=== PATIENT | male | born 1960 | race African-American/Black ===

== ENCOUNTER 2022-02-09 11:29 | Inpatient (IN) | payer OTHER ==
[2022-02-09 12:28] VITALS: BMI 29.8
[2022-02-09] MEDS ORDERED: POLYETHYLENE GLYCOL (HEALTHYLAX) 3350 17 GM PACKET PO PRN (14:21)
[2022-02-09] MEDS ORDERED: BENZOCAINE/MENTHOL (CHLORASEPTIC ) LOZENGE MM PRN (14:21)
[2022-02-09] MEDS ORDERED: ACETAMINOPHEN 325 MG TABLET (FP) PO PRN ×2 (14:21)
[2022-02-09] MEDS ORDERED: NICOTINE 10 MG CARTRIDGE (INHALER) IH PRN (14:21)
[2022-02-09] MEDS ORDERED: MAG HYDROX/AL HYDROX/SIMETH 30 ML UNIT-DOSE CUP PO PRN (14:21)
[2022-02-09] MEDS ORDERED: diazePAM 5 MG TABLET PO PRN (14:21)
[2022-02-09] MEDS ORDERED: METHOCARBAMOL 500 MG TABLET PO PRN (14:21)
[2022-02-09] MEDS ORDERED: ONDANSETRON *ODT* 4 MG TABLET SL PRN (14:21)
[2022-02-09] MEDS ORDERED: diazePAM 5 MG TABLET PO ONE ×2 (14:21→16:15)
[2022-02-09] MEDS ORDERED: BISMUTH SUBSALICYLATE 524 MG/30 ML PO PRN (14:21)
[2022-02-09] MEDS ORDERED: IBUPROFEN 400 MG TABLET (FP) PO PRN (14:21)
[2022-02-09] MEDS ORDERED: IBUPROFEN 600 MG TABLET (FP) PO PRN (14:21)
[2022-02-09] MEDS ORDERED: LOPERAMIDE HCL 2 MG CAPSULE PO PRN (14:21)
[2022-02-09] MEDS ORDERED: MAGNESIUM HYDROX 2400MG/30ML ORAL SUSPENSION 30 ML CUP PO PRN (14:21)
[2022-02-09] MEDS ORDERED: NALOXONE HCL (KLOXXADO) 8 MG SPRAY NS PRN (14:21)
[2022-02-09] MEDS ORDERED: DICYCLOMINE HCL 10 MG CAPSULE PO PRN (14:21)
[2022-02-09] MEDS ORDERED: NIFEdipine E.R 60 MG TABLET PO SCH (14:30)
[2022-02-09] MEDS: diazePAM 5 MG TABLET PO SCH ×2 (17:08→22:24)
[2022-02-09] MEDS: LOSARTAN POTASSIUM 50 MG TABLET PO SCH (17:19)
[2022-02-09] MEDS: MELATONIN 5 MG TABLETS PO SCH (22:24)
[2022-02-09] MEDS: THIAMINE HCL 100 MG TABLET (FP) PO SCH (22:24)
[2022-02-10] MEDS: diazePAM 5 MG TABLET PO SCH ×4 (05:51→22:35)
[2022-02-10] MEDS: LOSARTAN POTASSIUM 50 MG TABLET PO SCH (09:38)
[2022-02-10] MEDS: NIFEdipine E.R. 30 MG TABLET PO SCH (09:38)
[2022-02-10] MEDS: PRENATAL VITAMINS W/ FOLIC ACID TABLET (FP) PO SCH (10:45)
[2022-02-10 12:28] LABS: HEMATOCRIT 46.4 % (35.4-49); HEMOGLOBIN 14.9 GM/dL (11.7-16.9); MCH 29.5 pg (25.7-33.7); MCHC 32.2 g/dl (32.0-35.9); MEAN CELL VOLUME 91.6 fl (80-96); PLATELET COUNT 168 10^3/uL (134-434); RBC 5.06 M/mm3 (4.00-5.60); RDW 14.5 % (11.9-15.9); WHITE BLOOD COUNT 7.9 K/mm3 (4.0-10.0)
[2022-02-10 12:38] LABS: CALCIUM 9.1 mg/dL (8.5-10.1)
[2022-02-10 12:39] LABS: ALBUMIN 3.3 g/dl (3.4-5.0); BLOOD UREA NITROGEN 17.3 mg/dL (7-18)
[2022-02-10 12:42] LABS: CREATININE 1.4 mg/dL (0.55-1.3)
[2022-02-10 12:44] LABS: BILIRUBIN,TOTAL 0.5 mg/dL (0.2-1); TOT PROT 6.5 g/dl (6.4-8.2)
[2022-02-10] MEDS: THIAMINE HCL 100 MG TABLET (FP) PO SCH (22:35)
[2022-02-10] MEDS: MELATONIN 5 MG TABLETS PO SCH (22:35)
[2022-02-11] MEDS: diazePAM 5 MG TABLET PO SCH ×3 (05:27→22:25)
[2022-02-11] MEDS: NIFEdipine E.R. 30 MG TABLET PO SCH (10:16)
[2022-02-11] MEDS: LOSARTAN POTASSIUM 50 MG TABLET PO SCH (10:16)
[2022-02-11] MEDS: PRENATAL VITAMINS W/ FOLIC ACID TABLET (FP) PO SCH (10:16)
[2022-02-11] MEDS ORDERED: LOSARTAN POTASSIUM 50 MG TABLET PO SCH (11:00)
[2022-02-11 12:46] LABS: CALCIUM 8.8 mg/dL (8.5-10.1)
[2022-02-11 12:50] LABS: CREATININE 1.3 mg/dL (0.55-1.3)
[2022-02-11] MEDS ORDERED: cloNIDine HCL 0.1 MG TABLET PO ONE (13:15)
[2022-02-11] MEDS ORDERED: cloNIDine HCL 0.1 MG TABLET PO STA (17:20)
[2022-02-11] MEDS: cloNIDine HCL 0.1 MG TABLET PO SCH (22:25)
[2022-02-11] MEDS: RALTEGRAVIR POTASSIUM 400 MG TAB PO SCH (22:26)
[2022-02-11] MEDS: EMTRICITABINE/TENOFOV ALAFENAM (DESCOVY) TABLET PO SCH (22:26)
[2022-02-11] MEDS: THIAMINE HCL 100 MG TABLET (FP) PO SCH (22:26)
[2022-02-11] MEDS: MELATONIN 5 MG TABLETS PO SCH (22:30)
[2022-02-12] MEDS: diazePAM 5 MG TABLET PO SCH ×2 (05:19→18:29)
[2022-02-12] MEDS: PRENATAL VITAMINS W/ FOLIC ACID TABLET (FP) PO SCH (10:21)
[2022-02-12] MEDS: LOSARTAN POTASSIUM 50 MG TABLET PO SCH (10:22)
[2022-02-12] MEDS: NIFEdipine E.R. 30 MG TABLET PO SCH (10:23)
[2022-02-12] MEDS: cloNIDine HCL 0.1 MG TABLET PO SCH ×2 (10:23→22:28)
[2022-02-12] MEDS: EMTRICITABINE/TENOFOV ALAFENAM (DESCOVY) TABLET PO SCH (10:26)
[2022-02-12] MEDS: RALTEGRAVIR POTASSIUM 400 MG TAB PO SCH ×2 (10:26→22:28)
[2022-02-12] MEDS: MELATONIN 5 MG TABLETS PO SCH (22:28)
[2022-02-12] MEDS: THIAMINE HCL 100 MG TABLET (FP) PO SCH (22:29)
[2022-02-13] MEDS ORDERED: diazePAM 5 MG TABLET PO ONE (06:00)
[2022-02-13] MEDS: EMTRICITABINE/TENOFOV ALAFENAM (DESCOVY) TABLET PO SCH (10:05)
[2022-02-13] MEDS: PRENATAL VITAMINS W/ FOLIC ACID TABLET (FP) PO SCH (10:05)
[2022-02-13] MEDS: RALTEGRAVIR POTASSIUM 400 MG TAB PO SCH (10:05)
[2022-02-13] MEDS: LOSARTAN POTASSIUM 50 MG TABLET PO SCH (10:06)
[2022-02-13] MEDS: cloNIDine HCL 0.1 MG TABLET PO SCH (10:06)
[2022-02-13] MEDS: NIFEdipine E.R. 30 MG TABLET PO SCH (10:07)
[2022-02-13 12:51] VITALS: BP 146/87; PULSE 79; RESP 18; TEMP 97.7
== END 2022-02-13 14:16 | disposition home or self-care (01) | DRG 775 ==
LOC: YASAS 11:29 → Y3N 15:22
PROVIDERS: ADMIT Allergy & Immunology; ATTEND Surgery
PROC: HZ2ZZZZ Detoxification Services for Substance Abuse Treatment (ICD-10-PCS; principal; 2022-02-09)
DX: F10.230 Alcohol dependence with withdrawal, uncomplicated (principal); F13.230 Sedative, hypnotic or anxiolytic dependence with withdrawal, uncomplicated; F17.210 Nicotine dependence, cigarettes, uncomplicated; F43.10 Post-traumatic stress disorder, unspecified; I10 Essential (primary) hypertension; R73.09 Other abnormal glucose; Z21 Asymptomatic human immunodeficiency virus [HIV] infection status; R79.89 Other specified abnormal findings of blood chemistry; E87.8 Other disorders of electrolyte and fluid balance, not elsewhere classified; M54.40 Lumbago with sciatica, unspecified side; G89.29 Other chronic pain; Z30.9 Encounter for contraceptive management, unspecified; Z86.59 Personal history of other mental and behavioral disorders; Z86.69 Personal history of other diseases of the nervous system and sense organs; Z91.51 Personal history of suicidal behavior; Z56.0 Unemployment, unspecified; Z59.00 Homelessness unspecified
CPT/HCPCS: 36415; 73140-TC-RT-FY; 80048; 80053; 85027; 86780; 87811; 93005; 93010; C9803-CS; U0003; U0005

== ENCOUNTER 2022-05-27 02:47 | Inpatient (IN) | payer OTHER ==
[2022-05-27] MEDS ORDERED: MAG HYDROX/AL HYDROX/SIMETH 30 ML UNIT-DOSE CUP PO ONE (03:14)
[2022-05-27] MEDS ORDERED: FAMOTIDINE 20 MG/50 ML IVPB 20 MG/50 ML MG IVPB ONE ×2 (03:14→03:18)
[2022-05-27] MEDS ORDERED: MAG HYDROX/AL HYDROX/SIMETH 30 ML UNIT-DOSE CUP ONE (03:18)
[2022-05-27] MEDS ORDERED: ONDANSETRON 4 MG/2 ML VIAL IVPUSH ONE (03:45)
[2022-05-27 03:50] LABS: BASO % 0.9 % (0-2.0); EOS % 0.7 % (0-4.5); HEMATOCRIT 45.8 % (35.4-49); HEMOGLOBIN 15.8 GM/dL (11.7-16.9); LYMPH % 14.2 % (8-40); MCH 30.9 pg (25.7-33.7); MCHC 34.4 g/dl (32.0-35.9); MEAN CELL VOLUME 89.6 fl (80-96); MEAN PLT VOLUME 10.4 fl (7.5-11.1); MONO % 10.5 % (3.8-10.2); NEUT % 73.7 % (42.8-82.8); PLATELET COUNT 140 10^3/uL (134-434); RBC 5.11 M/mm3 (4.00-5.60); RDW 15.1 % (11.9-15.9)
[2022-05-27] MEDS ORDERED: ONDANSETRON 4 MG/2 ML VIAL ONE (03:52)
[2022-05-27] MEDS ORDERED: LOSARTAN POTASSIUM 50 MG TABLET PO ONE (04:07)
[2022-05-27] MEDS ORDERED: cloNIDine HCL 0.1 MG TABLET PO ONE (04:07)
[2022-05-27] MEDS ORDERED: NIFEdipine E.R 60 MG TABLET PO ONE ×2 (04:07→04:11)
[2022-05-27 04:11] LABS: CALCIUM 9.4 mg/dL (8.5-10.1)
[2022-05-27] MEDS ORDERED: LOSARTAN POTASSIUM 50 MG TABLET ONE (04:11)
[2022-05-27] MEDS ORDERED: cloNIDine HCL 0.1 MG TABLET ONE (04:11)
[2022-05-27 04:12] LABS: BLOOD UREA NITROGEN 31.4 mg/dL (7-18)
[2022-05-27 04:16] LABS: BILIRUBIN,TOTAL 0.8 mg/dL (0.2-1); TOT PROT 7.8 g/dl (6.4-8.2)
[2022-05-27 05:00] LABS: EPI CELLS 17 /uL (0-25.1); HYALINE CASTS 9 /uL (0-3.1); PH,URINE 5.5 (5.0-8.0); URINE APPEARANCE CLEAR; URINE BACTERIA 61 /uL (0-1359); URINE BILIRUBIN NEGATIVE (NEGATIVE); URINE COLOR DK YELLOW; URINE GLUCOSE (UA) TRACE (NEGATIVE); URINE KETONE TRACE (NEGATIVE); URINE LEUK ESTERASE TRACE (NEGATIVE); URINE NITRITE NEGATIVE (NEGATIVE); URINE PROTEIN 2+ (NEGATIVE); URINE RBC 34 /uL (0-23.9); URINE WBC 32 /uL (0-25.8)
[2022-05-27] MEDS ORDERED: SODIUM CHLORIDE 0.45% 1,000 ML IV SCH (06:30)
[2022-05-27] MEDS ORDERED: LORazepam 1 MG TABLET ONE ×2 (06:42→09:29)
[2022-05-27] MEDS: LORazepam 1 MG TABLET PO SCH ×4 (06:45→22:13)
[2022-05-27] MEDS: HEPARIN NA (PORCINE) 5,000 UNITS/ML 1ML VIAL SQ SCH ×3 (07:44→22:09)
[2022-05-27] MEDS ORDERED: LACTATED RINGERS SOLUTION 1000 ML INFUS.BAG IV ONE (07:59)
[2022-05-27] MEDS ORDERED: THIAMINE HCL 200 MG/2 ML VIAL ONE (09:29)
[2022-05-27] MEDS: THIAMINE HCL 200 MG/2 ML VIAL IVPB SCH (10:25)
[2022-05-27] MEDS ORDERED: SODIUM CHLORIDE 1,000 ML IV STA ×2 (10:56)
[2022-05-27 11:25] LABS: HEMATOCRIT 41.8 % (35.4-49); HEMOGLOBIN 14.4 GM/dL (11.7-16.9); MCH 30.7 pg (25.7-33.7); MCHC 34.4 g/dl (32.0-35.9); MEAN CELL VOLUME 89.1 fl (80-96); MEAN PLT VOLUME 10.1 fl (7.5-11.1); PLATELET COUNT 120 10^3/uL (134-434); RDW 14.8 % (11.9-15.9); WHITE BLOOD COUNT 7.2 K/mm3 (4.0-10.0)
[2022-05-27] MEDS: EMTRICITABINE/TENOFOV ALAFENAM (DESCOVY) TABLET PO SCH (11:35)
[2022-05-27] MEDS: RALTEGRAVIR POTASSIUM 400 MG TAB PO SCH ×2 (11:35→22:11)
[2022-05-27 11:45] LABS: CALCIUM 8.9 mg/dL (8.5-10.1)
[2022-05-27 11:46] LABS: ALBUMIN 3.4 g/dl (3.4-5.0); BLOOD UREA NITROGEN 29.5 mg/dL (7-18)
[2022-05-27 11:48] LABS: CREATININE 1.6 mg/dL (0.55-1.3)
[2022-05-27 11:50] LABS: BILIRUBIN,TOTAL 0.8 mg/dL (0.2-1); TOT PROT 6.3 g/dl (6.4-8.2)
[2022-05-28] MEDS ORDERED: LORazepam 1 MG TABLET PO SCH (05:00)
[2022-05-28] MEDS: HEPARIN NA (PORCINE) 5,000 UNITS/ML 1ML VIAL SQ SCH (05:59)
[2022-05-28] MEDS ORDERED: LOSARTAN POTASSIUM 50 MG TABLET PO ONE (06:09)
[2022-05-28] MEDS ORDERED: SODIUM CHLORIDE 1,000 ML IV STA (07:25)
[2022-05-28] MEDS ORDERED: BISACODYL 5 MG TABLET.DR (FP) PO ONE (09:05)
[2022-05-28] MEDS: EMTRICITABINE/TENOFOV ALAFENAM (DESCOVY) TABLET PO SCH (09:40)
[2022-05-28] MEDS: RALTEGRAVIR POTASSIUM 400 MG TAB PO SCH (09:41)
[2022-05-28] MEDS: THIAMINE HCL 200 MG/2 ML VIAL IVPB SCH (09:42)
[2022-05-28] MEDS ORDERED: cloNIDine HCL 0.1 MG TABLET PO SCH (10:00)
[2022-05-28] MEDS ORDERED: NIFEdipine E.R 60 MG TABLET PO SCH (10:00)
[2022-05-28 11:42] VITALS: BP 159/90; PULSE 85; RESP 20; TEMP 98.8
[2022-05-29] MEDS ORDERED: LORazepam 0.5 MG TABLET PO SCH (05:00)
== END 2022-05-28 11:05 | disposition other institution (70) | DRG 892 ==
LOC: JER 02:47 → JERBED 05:38 → J7W 14:55
PROVIDERS: ADMIT Internal Medicine; ATTEND Internal Medicine
DX: N17.9 Acute kidney failure, unspecified (principal); F10.10 Alcohol abuse, uncomplicated; F14.10 Cocaine abuse, uncomplicated; F13.20 Sedative, hypnotic or anxiolytic dependence, uncomplicated; B20 Human immunodeficiency virus [HIV] disease; F43.10 Post-traumatic stress disorder, unspecified; E86.0 Dehydration; I16.0 Hypertensive urgency; I12.9 Hypertensive chronic kidney disease with stage 1 through stage 4 chronic kidney disease, or unspecified chronic kidney disease; N18.1 Chronic kidney disease, stage 1; Z91.148 Patient's other noncompliance with medication regimen for other reason
CPT/HCPCS: 0241U-QW; 36415; 71045-TC-FY; 71250-TC; 76775-TC; 80053; 81003; 83036; 83690; 83930; 84484; 85025; 85027; 86359; 86360; 87536; 93005; 93010; 99285-25; J1644

== ENCOUNTER 2022-05-28 11:29 | Inpatient (IN) | payer OTHER ==
[2022-05-28 12:03] VITALS: BMI 27.8
[2022-05-28] MEDS ORDERED: NICOTINE POLACRILEX 2 MG GUM BUC PRN (12:10)
[2022-05-28] MEDS ORDERED: MAG HYDROX/AL HYDROX/SIMETH 30 ML UNIT-DOSE CUP PO PRN (12:10)
[2022-05-28] MEDS ORDERED: NICOTINE 7 MG/24 HOURS TOPICAL PATCH TD PRN (12:10)
[2022-05-28] MEDS ORDERED: POLYETHYLENE GLYCOL (HEALTHYLAX) 3350 17 GM PACKET PO PRN (12:10)
[2022-05-28] MEDS ORDERED: BENZONATATE 200 MG CAPSULE PO PRN (12:10)
[2022-05-28] MEDS ORDERED: LORazepam 1 MG TABLET PO PRN (12:10)
[2022-05-28] MEDS ORDERED: NICOTINE 10 MG CARTRIDGE (INHALER) IH PRN (12:10)
[2022-05-28] MEDS ORDERED: MAGNESIUM HYDROX 2400MG/30ML ORAL SUSPENSION 30 ML CUP PO PRN (12:10)
[2022-05-28] MEDS ORDERED: BISMUTH SUBSALICYLATE 262 MG/15 ML BTL PO PRN (12:10)
[2022-05-28] MEDS ORDERED: BENZOCAINE/MENTHOL (CHLORASEPTIC ) LOZENGE MM PRN (12:10)
[2022-05-28] MEDS ORDERED: ACETAMINOPHEN 325 MG TABLET (FP) PO PRN (12:10)
[2022-05-28] MEDS ORDERED: guaiFENesin 600 MG TABLET.ER (FP) PO PRN (12:10)
[2022-05-28] MEDS ORDERED: METHOCARBAMOL 500 MG TABLET PO PRN (12:10)
[2022-05-28] MEDS ORDERED: LOPERAMIDE HCL 2 MG CAPSULE PO PRN (12:10)
[2022-05-28] MEDS ORDERED: hydrOXYzine PAMOATE 25 MG CAPSULE (FP) PO PRN (12:10)
[2022-05-28] MEDS ORDERED: IBUPROFEN 600 MG TABLET (FP) PO PRN (12:10)
[2022-05-28] MEDS ORDERED: ONDANSETRON *ODT* 4 MG TABLET SL PRN (12:10)
[2022-05-28] MEDS ORDERED: IBUPROFEN 400 MG TABLET (FP) PO PRN (12:10)
[2022-05-28] MEDS: LORazepam 1 MG TABLET PO SCH ×2 (18:00→22:47)
[2022-05-28] MEDS: THIAMINE HCL 100 MG TABLET (FP) PO SCH (22:47)
[2022-05-28] MEDS: RALTEGRAVIR POTASSIUM 400 MG TAB PO SCH (22:47)
[2022-05-28] MEDS: MELATONIN 5 MG TABLETS PO SCH (22:48)
[2022-05-29] MEDS: LORazepam 0.5 MG TABLET PO SCH ×4 (05:34→22:59)
[2022-05-29] MEDS ORDERED: cloNIDine HCL 0.1 MG TABLET PO ONE (07:18)
[2022-05-29] MEDS ORDERED: cloNIDine HCL 0.1 MG TABLET PO SCH (10:00)
[2022-05-29] MEDS: PRENATAL VITAMINS W/ FOLIC ACID TABLET (FP) PO SCH (10:23)
[2022-05-29] MEDS: RALTEGRAVIR POTASSIUM 400 MG TAB PO SCH ×2 (10:23→22:59)
[2022-05-29] MEDS: EMTRICITABINE/TENOFOV ALAFENAM (DESCOVY) TABLET PO SCH (10:23)
[2022-05-29] MEDS: NIFEdipine E.R 60 MG TABLET PO SCH (10:23)
[2022-05-29] MEDS: LOSARTAN POTASSIUM 50 MG TABLET PO SCH (10:23)
[2022-05-29 13:04] LABS: CALCIUM 8.6 mg/dL (8.5-10.1)
[2022-05-29 13:05] LABS: ALBUMIN 3.3 g/dl (3.4-5.0); BLOOD UREA NITROGEN 25.5 mg/dL (7-18)
[2022-05-29 13:08] LABS: CREATININE 1.4 mg/dL (0.55-1.3); PHOSPHOROUS 3.3 mg/dL (2.5-4.9)
[2022-05-29] MEDS: cloNIDine HCL 0.1 MG TABLET PO PRN ×2 (14:13→23:01)
[2022-05-29] MEDS: THIAMINE HCL 100 MG TABLET (FP) PO SCH (22:59)
[2022-05-29] MEDS: MELATONIN 5 MG TABLETS PO SCH (22:59)
[2022-05-30] MEDS ORDERED: LORazepam 0.5 MG TABLET PO PRN
[2022-05-30] MEDS: DICYCLOMINE HCL 10 MG CAPSULE PO PRN ×2 (04:53→10:39)
[2022-05-30] MEDS ORDERED: LORazepam 0.5 MG TABLET PO ONE (05:00)
[2022-05-30 09:20] VITALS: BP 151/81; PULSE 85; RESP 18; TEMP 98.2
[2022-05-30] MEDS: NIFEdipine E.R 60 MG TABLET PO SCH (10:29)
[2022-05-30] MEDS: EMTRICITABINE/TENOFOV ALAFENAM (DESCOVY) TABLET PO SCH ×2 (10:30→11:09)
[2022-05-30] MEDS: RALTEGRAVIR POTASSIUM 400 MG TAB PO SCH ×2 (10:30→11:09)
[2022-05-30] MEDS: LOSARTAN POTASSIUM 50 MG TABLET PO SCH (10:30)
[2022-05-30] MEDS: PRENATAL VITAMINS W/ FOLIC ACID TABLET (FP) PO SCH (10:30)
[2022-05-30] MEDS: cloNIDine HCL 0.1 MG TABLET PO PRN (10:39)
== END 2022-05-30 12:50 | disposition other institution (70) | DRG 774 ==
LOC: YASAS 11:29 → Y6N 13:57
PROVIDERS: ADMIT Allergy & Immunology; ATTEND Surgery
PROC: HZ2ZZZZ Detoxification Services for Substance Abuse Treatment (ICD-10-PCS; principal; 2022-05-28)
DX: F10.230 Alcohol dependence with withdrawal, uncomplicated (principal); F14.20 Cocaine dependence, uncomplicated; F13.20 Sedative, hypnotic or anxiolytic dependence, uncomplicated; F17.210 Nicotine dependence, cigarettes, uncomplicated; F20.9 Schizophrenia, unspecified; F43.10 Post-traumatic stress disorder, unspecified; Z21 Asymptomatic human immunodeficiency virus [HIV] infection status; I11.0 Hypertensive heart disease with heart failure
CPT/HCPCS: 36415; 80069; 87811; Q0162

== ENCOUNTER 2022-05-30 13:20 | Inpatient (IN) | payer OTHER ==
[2022-05-30] MEDS ORDERED: BENZOCAINE/MENTHOL (CHLORASEPTIC ) LOZENGE MM PRN (15:36)
[2022-05-30] MEDS ORDERED: NALOXONE HCL (KLOXXADO) 8 MG SPRAY NS PRN (15:36)
[2022-05-30] MEDS ORDERED: METHOCARBAMOL 500 MG TABLET PO PRN (15:36)
[2022-05-30] MEDS ORDERED: NALOXONE HCL 0.4 MG/ML VIAL IVPUSH PRN (15:36)
[2022-05-30] MEDS ORDERED: ACETAMINOPHEN 325 MG TABLET (FP) PO PRN (15:36)
[2022-05-30] MEDS ORDERED: guaiFENesin 600 MG TABLET.ER (FP) PO PRN (15:36)
[2022-05-30] MEDS ORDERED: LOPERAMIDE HCL 2 MG CAPSULE PO PRN (15:36)
[2022-05-30] MEDS ORDERED: BENZONATATE 200 MG CAPSULE PO PRN (15:36)
[2022-05-30] MEDS ORDERED: POLYETHYLENE GLYCOL (HEALTHYLAX) 3350 17 GM PACKET PO PRN (15:36)
[2022-05-30] MEDS: PRENATAL VITAMINS W/ FOLIC ACID TABLET (FP) PO SCH (17:09)
[2022-05-30] MEDS: THIAMINE HCL 100 MG TABLET (FP) PO SCH (21:10)
[2022-05-30] MEDS ORDERED: PATIENT'S OWN MEDICATION (NON-FORMULARY) (Clonidine Hcl [Clonidine Hcl] 0.2 MG Tablet) PO SCH (22:00)
[2022-05-30] MEDS ORDERED: MELATONIN 5 MG TABLETS PO SCH (22:00)
[2022-05-31] MEDS: IBUPROFEN 400 MG TABLET (FP) PO PRN (06:27)
[2022-05-31] MEDS: hydrOXYzine PAMOATE 25 MG CAPSULE (FP) PO PRN (06:28)
[2022-05-31] MEDS: cloNIDine HCL 0.1 MG TABLET PO PRN (06:56)
[2022-05-31] MEDS: PRENATAL VITAMINS W/ FOLIC ACID TABLET (FP) PO SCH (10:21)
[2022-05-31] MEDS: NIFEdipine E.R 60 MG TABLET PO SCH (10:21)
[2022-05-31] MEDS: LOSARTAN POTASSIUM 50 MG TABLET PO SCH (10:21)
[2022-05-31] MEDS: MAGNESIUM HYDROX 2400MG/30ML ORAL SUSPENSION 30 ML CUP PO PRN (10:25)
[2022-05-31] MEDS: IBUPROFEN 600 MG TABLET (FP) PO PRN (14:48)
[2022-05-31] MEDS: THIAMINE HCL 100 MG TABLET (FP) PO SCH (21:23)
[2022-05-31] MEDS: SUVOREXANT 5 MG TABLET PO PRN (21:40)
[2022-05-31] MEDS: MAG HYDROX/AL HYDROX/SIMETH 30 ML UNIT-DOSE CUP PO PRN (21:43)
[2022-06-01] MEDS: cloNIDine HCL 0.1 MG TABLET PO PRN (05:34)
[2022-06-01] MEDS: hydrOXYzine PAMOATE 25 MG CAPSULE (FP) PO PRN ×2 (06:50→22:33)
[2022-06-01] MEDS: MAG HYDROX/AL HYDROX/SIMETH 30 ML UNIT-DOSE CUP PO PRN ×2 (07:07→22:34)
[2022-06-01] MEDS: PRENATAL VITAMINS W/ FOLIC ACID TABLET (FP) PO SCH (09:47)
[2022-06-01] MEDS: NIFEdipine E.R 60 MG TABLET PO SCH (09:48)
[2022-06-01] MEDS: LOSARTAN POTASSIUM 50 MG TABLET PO SCH (09:48)
[2022-06-01] MEDS: THIAMINE HCL 100 MG TABLET (FP) PO SCH (21:57)
[2022-06-01] MEDS: BACLOFEN 10 MG TABLET (FP) PO PRN (22:33)
[2022-06-01] MEDS: IBUPROFEN 400 MG TABLET (FP) PO PRN (22:33)
[2022-06-02] MEDS: hydrOXYzine PAMOATE 25 MG CAPSULE (FP) PO PRN (06:05)
[2022-06-02] MEDS: cloNIDine HCL 0.1 MG TABLET PO PRN (06:05)
[2022-06-02] MEDS: IBUPROFEN 400 MG TABLET (FP) PO PRN (09:36)
[2022-06-02] MEDS: NIFEdipine E.R 60 MG TABLET PO SCH (09:36)
[2022-06-02] MEDS: PRENATAL VITAMINS W/ FOLIC ACID TABLET (FP) PO SCH (09:36)
[2022-06-02] MEDS: LOSARTAN POTASSIUM 50 MG TABLET PO SCH (09:36)
[2022-06-02] MEDS: MAGNESIUM HYDROX 2400MG/30ML ORAL SUSPENSION 30 ML CUP PO PRN (17:17)
[2022-06-02] MEDS: THIAMINE HCL 100 MG TABLET (FP) PO SCH (22:18)
[2022-06-02] MEDS: SUVOREXANT 5 MG TABLET PO PRN (22:19)
[2022-06-02] MEDS: BACLOFEN 10 MG TABLET (FP) PO PRN (22:20)
[2022-06-03] MEDS: MAGNESIUM HYDROX 2400MG/30ML ORAL SUSPENSION 30 ML CUP PO PRN (05:55)
[2022-06-03] MEDS: cloNIDine HCL 0.1 MG TABLET PO PRN (05:55)
[2022-06-03] MEDS: PRENATAL VITAMINS W/ FOLIC ACID TABLET (FP) PO SCH (10:00)
[2022-06-03] MEDS: LOSARTAN POTASSIUM 50 MG TABLET PO SCH (10:00)
[2022-06-03] MEDS: NIFEdipine E.R 60 MG TABLET PO SCH (10:00)
[2022-06-03] MEDS ORDERED: ACETAMINOPHEN 325 MG TABLET (FP) PO PRN (14:18)
[2022-06-03] MEDS: THIAMINE HCL 100 MG TABLET (FP) PO SCH (23:07)
[2022-06-03] MEDS: SUVOREXANT 5 MG TABLET PO PRN (23:08)
[2022-06-04] MEDS: LOSARTAN POTASSIUM 50 MG TABLET PO SCH (09:35)
[2022-06-04] MEDS: PRENATAL VITAMINS W/ FOLIC ACID TABLET (FP) PO SCH (09:35)
[2022-06-04] MEDS: NIFEdipine E.R. 90 MG TABLET PO SCH (09:35)
[2022-06-04] MEDS: hydrOXYzine PAMOATE 25 MG CAPSULE (FP) PO PRN (09:36)
[2022-06-04 11:51] LABS: CALCIUM 9.1 mg/dL (8.5-10.1)
[2022-06-04 11:52] LABS: ALBUMIN 3.6 g/dl (3.4-5.0); BLOOD UREA NITROGEN 26.1 mg/dL (7-18)
[2022-06-04 11:55] LABS: CREATININE 1.1 mg/dL (0.55-1.3)
[2022-06-04 11:56] LABS: BILIRUBIN,TOTAL 0.3 mg/dL (0.2-1)
[2022-06-04 13:45] LABS: HIV INTERPRETATION NEGATIVE (NEGATIVE)
[2022-06-04] MEDS: IBUPROFEN 600 MG TABLET (FP) PO PRN (14:29)
[2022-06-04] MEDS: ERYTHROMYCIN 0.5% OPHTHALMIC OINTMENT 3.5 GM TUBE OD SCH (15:56)
[2022-06-04] MEDS: SUVOREXANT 5 MG TABLET PO PRN (22:24)
[2022-06-04] MEDS: THIAMINE HCL 100 MG TABLET (FP) PO SCH (22:24)
[2022-06-04] MEDS: IBUPROFEN 400 MG TABLET (FP) PO PRN (22:25)
[2022-06-05] MEDS: cloNIDine HCL 0.1 MG TABLET PO PRN (06:18)
[2022-06-05] MEDS: IBUPROFEN 400 MG TABLET (FP) PO PRN (06:19)
[2022-06-05] MEDS: NIFEdipine E.R. 90 MG TABLET PO SCH (09:42)
[2022-06-05] MEDS: PRENATAL VITAMINS W/ FOLIC ACID TABLET (FP) PO SCH (09:42)
[2022-06-05] MEDS: LOSARTAN POTASSIUM 50 MG TABLET PO SCH (09:42)
[2022-06-05] MEDS: ERYTHROMYCIN 0.5% OPHTHALMIC OINTMENT 3.5 GM TUBE OD SCH (09:42)
[2022-06-05] MEDS ORDERED: LIDOCAINE HCL 5% TOP OINTMENT 50 GM TUBE TP ONE ×2 (11:24→11:27)
[2022-06-05] MEDS ORDERED: LIDOCAINE VISCOUS 2% ORAL/TOP 100 ML BOTTLE MM PRN (11:27)
[2022-06-05] MEDS: IBUPROFEN 600 MG TABLET (FP) PO PRN (17:05)
[2022-06-05] MEDS: THIAMINE HCL 100 MG TABLET (FP) PO SCH (22:40)
[2022-06-05] MEDS: cloNIDine HCL 0.1 MG TABLET PO SCH (22:42)
[2022-06-05] MEDS: SUVOREXANT 5 MG TABLET PO PRN (22:43)
[2022-06-06] MEDS: IBUPROFEN 600 MG TABLET (FP) PO PRN ×3 (06:38→22:43)
[2022-06-06] MEDS: ERYTHROMYCIN 0.5% OPHTHALMIC OINTMENT 3.5 GM TUBE OD SCH (10:10)
[2022-06-06] MEDS: LOSARTAN POTASSIUM 50 MG TABLET PO SCH (10:10)
[2022-06-06] MEDS: NIFEdipine E.R. 90 MG TABLET PO SCH (10:10)
[2022-06-06] MEDS: cloNIDine HCL 0.1 MG TABLET PO SCH ×2 (10:10→22:42)
[2022-06-06] MEDS: PRENATAL VITAMINS W/ FOLIC ACID TABLET (FP) PO SCH (10:11)
[2022-06-06] MEDS: hydrOXYzine PAMOATE 25 MG CAPSULE (FP) PO PRN (10:12)
[2022-06-06] MEDS: SUVOREXANT 5 MG TABLET PO PRN (22:42)
[2022-06-06] MEDS: THIAMINE HCL 100 MG TABLET (FP) PO SCH (22:42)
[2022-06-07] MEDS: IBUPROFEN 600 MG TABLET (FP) PO PRN (07:09)
[2022-06-07] MEDS: NIFEdipine E.R. 90 MG TABLET PO SCH (09:42)
[2022-06-07] MEDS: LOSARTAN POTASSIUM 50 MG TABLET PO SCH (09:42)
[2022-06-07] MEDS: PRENATAL VITAMINS W/ FOLIC ACID TABLET (FP) PO SCH (09:42)
[2022-06-07] MEDS: cloNIDine HCL 0.1 MG TABLET PO SCH (09:42)
[2022-06-07] MEDS: ERYTHROMYCIN 0.5% OPHTHALMIC OINTMENT 3.5 GM TUBE OD SCH (09:43)
[2022-06-07] MEDS: hydrOXYzine PAMOATE 25 MG CAPSULE (FP) PO PRN (09:44)
[2022-06-07 10:46] VITALS: BP 150/90; PULSE 92; RESP 18; TEMP 96.8
== END 2022-06-07 13:13 | disposition home or self-care (01) | DRG 772 ==
LOC: YASAS 13:20 → Y3W 13:21
PROVIDERS: ADMIT Allergy & Immunology; ATTEND Psychiatry & Neurology Pain Medicine
PROC: HZ42ZZZ Group Counseling for Substance Abuse Treatment, Cognitive-Behavioral (ICD-10-PCS; principal; 2022-05-30)
DX: F10.20 Alcohol dependence, uncomplicated (principal); F14.20 Cocaine dependence, uncomplicated; F17.210 Nicotine dependence, cigarettes, uncomplicated; F19.282 Other psychoactive substance dependence with psychoactive substance-induced sleep disorder; F19.24 Other psychoactive substance dependence with psychoactive substance-induced mood disorder; F20.9 Schizophrenia, unspecified; Z21 Asymptomatic human immunodeficiency virus [HIV] infection status; H91.92 Unspecified hearing loss, left ear; H00.012 Hordeolum externum right lower eyelid; K08.89 Other specified disorders of teeth and supporting structures; I12.9 Hypertensive chronic kidney disease with stage 1 through stage 4 chronic kidney disease, or unspecified chronic kidney disease; N18.9 Chronic kidney disease, unspecified; R76.8 Other specified abnormal immunological findings in serum; Z62.810 Personal history of physical and sexual abuse in childhood
CPT/HCPCS: 36415; 80053; 82140; 86803; 87389; J0475